=== PATIENT | female | born 1985 | race African-American/Black ===

== ENCOUNTER 2021-03-10 15:40 | Outpatient (CLI) | payer OTHER ==
[2021-03-10 16:55] LABS: Hemoglobin 12.6 g/dL (12.0-15.5); Mean Corpuscular HGB CONC 31.9 g/dL (32.0-36.0); Mean Corpuscular Hemoglobin 27.1 pg (27.0-33.0); Mean Corpuscular Volume 84.9 fl (81.6-98.3); Mean Platelet Volume 10.9 fl (7.4-10.4); Platelet Count 271 10x3/uL (150-450); RBC Distribution Width 13.4 % (11.5-14.5); Red Blood Cell (RBC) Count 4.65 10x6/uL (3.90-5.03); White Blood Cell (WBC) Count 4.5 10x3/uL (3.5-10.5)
[2021-03-10 17:07] LABS: BHCG - Serum Negative (NEGATIVE); Pregs Control Background? CLEAR/WHITE (CLR/WHITE); Pregs Control Bar Appear? YES (CONTROL BAR)
[2021-03-11 14:29] LABS: SARS-CoV-2 PCR by NAA Not Detected (NotDetected)
== END 2021-03-10 15:41 | disposition home or self-care (01) ==
LOC: CSHLAB 15:40
PROVIDERS: ATTEND Obstetrics & Gynecology
DX: Z01.812 Encounter for preprocedural laboratory examination (principal); Z20.822 Contact with and (suspected) exposure to COVID-19; N83.202 Unspecified ovarian cyst, left side
CPT/HCPCS: 84703; 85027; 86850; 86900; 86901; U0003; U0005

== ENCOUNTER 2021-03-15 10:30 | Day surgery (SDC) | payer OTHER ==
[2021-03-10 16:55] LABS: Hemoglobin 12.6 g/dL (12.0-15.5); Mean Corpuscular HGB CONC 31.9 g/dL (32.0-36.0); Mean Corpuscular Hemoglobin 27.1 pg (27.0-33.0); Mean Corpuscular Volume 84.9 fl (81.6-98.3); Mean Platelet Volume 10.9 fl (7.4-10.4); Platelet Count 271 10x3/uL (150-450); RBC Distribution Width 13.4 % (11.5-14.5); Red Blood Cell (RBC) Count 4.65 10x6/uL (3.90-5.03); White Blood Cell (WBC) Count 4.5 10x3/uL (3.5-10.5)
[2021-03-10 17:07] LABS: BHCG - Serum Negative (NEGATIVE); Pregs Control Background? CLEAR/WHITE (CLR/WHITE); Pregs Control Bar Appear? YES (CONTROL BAR)
[2021-03-11 14:29] LABS: SARS-CoV-2 PCR by NAA Not Detected (NotDetected)
[2021-03-13 15:41] VITALS: BMI 27.4
[2021-03-15] MEDS ORDERED: Lidocaine 1% MPF 2 ML VIAL ONE (12:14)
[2021-03-15] MEDS ORDERED: CeleCOXIB 100 MG CAP ONE (12:14)
[2021-03-15] MEDS ORDERED: Famotidine/PF 20 mg/2ml Vial ONE (12:14)
[2021-03-15] MEDS ORDERED: Gabapentin 300 MG CAP ONE (12:14)
[2021-03-15] MEDS ORDERED: EPINEPHrine 1 MG/ML AMP ONE (13:18)
[2021-03-15] MEDS ORDERED: Bupivacaine PF 0.5% 30 ML VIAL ONE (13:18)
[2021-03-15] MEDS ORDERED: PROPOFOL 20 ML ONE (13:19)
[2021-03-15] MEDS ORDERED: Fentanyl 100 MCG/2 ML VIAL ONE (13:19)
[2021-03-15] MEDS ORDERED: Lidocaine 1% PF 5 ML VIAL ONE (13:19)
[2021-03-15] MEDS ORDERED: Rocuronium Bromide 10 MG/ML (10ML VIAL) ONE (13:19)
[2021-03-15] MEDS ORDERED: Midazolam HCl 2 mg/2 ml Vial ONE (13:19)
[2021-03-15] MEDS ORDERED: Ketorolac Tromethamine 30 MG/ML VIAL ONE (13:20)
[2021-03-15] MEDS ORDERED: Ondansetron PF 4 MG/2 ML Vial ONE (13:20)
[2021-03-15] MEDS ORDERED: Dexamethasone 4 mg/ml Vial ONE (13:20)
[2021-03-15] MEDS ORDERED: Meperidine HCl/PF 25 MG/ML VIAL ONE (14:14)
[2021-03-15] MEDS ORDERED: Glycopyrrolate 0.2 MG/ML 5 ML SYRINGE ONE (14:24)
[2021-03-15] MEDS ORDERED: SUGAMMADEX SODIUM 200 MG/2 ML VIAL ONE (14:34)
== END 2021-03-15 16:20 | disposition home or self-care (01) ==
LOC: CSHSDC 10:30
PROVIDERS: ATTEND Obstetrics & Gynecology
PROC: 0UB44ZX Excision of Uterine Supporting Structure, Percutaneous Endoscopic Approach, Diagnostic (ICD-10-PCS; principal; 2021-03-15)
PROC: 0UB14ZZ Excision of Left Ovary, Percutaneous Endoscopic Approach (ICD-10-PCS; principal; 2021-03-15)
DX: N83.02 Follicular cyst of left ovary (principal); N83.291 Other ovarian cyst, right side; N80.3 Endometriosis of pelvic peritoneum; K66.0 Peritoneal adhesions (postprocedural) (postinfection); I10 Essential (primary) hypertension; M06.9 Rheumatoid arthritis, unspecified; Z79.899 Other long term (current) drug therapy
CPT/HCPCS: 84703; 85027; 86850; 86900; 86901; 88305; 88341; 88342; J0171; J0690; J1100; J1885; J2175; J2250; J2405; J2704; J3010; S0020; S0028; U0003; U0005

== ENCOUNTER 2022-12-10 14:11 | Emergency (ER) | payer OTHER ==
[~2022-12-10 14:11] MED LIST: Iopamidol 300 61% 100 ML VIAL FS ONE
[2022-12-10 14:44] LABS: Bilirubin Neg (Negative); Blood, Urine Negative (Negative); Clarity Slightly Cloudy (Clear); Glucose, Urine (Dipstick) Normal (Negative); Ketone, Urine Negative (Negative); Leukocyte 25 (Negative); Nitrite Positive (Negative); Protein, Urine (Dipstick) Negative (Neg-Trace)
[2022-12-10 14:47] LABS: Pregnancy Test - Urine (BHCG) Negative (Negative); Pregu Control Background? CLEAR/WHITE (CLR/WHITE); Pregu Control Bar Appear? YES (CONTROL BAR)
[2022-12-10 14:51] LABS: #Basophils 0.1 10x3/uL (0.0-0.2); #Monocytes 0.5 10x3/uL (0.0-1.1); #Neutrophils 7.1 10x3/uL (1.5-8.4); %Basophils 0.6 % (0.0-2.0); %Eosinophils 0.3 % (0.0-6.0); %Neutrophils 78.9 % (40.0-75.0); Hematocrit 39.3 % (34.9-44.5); Hemoglobin 12.5 g/dL (12.0-15.5); Mean Corpuscular HGB CONC 31.8 g/dL (32.0-36.0); Mean Corpuscular Hemoglobin 26.7 pg (27.0-33.0); Mean Corpuscular Volume 83.8 fl (81.6-98.3); Mean Platelet Volume 10.6 fl (7.4-10.4); Platelet Count 239 10x3/uL (150-450); RBC Distribution Width 13.8 % (11.5-14.5); Red Blood Cell (RBC) Count 4.69 10x6/uL (3.90-5.03)
[2022-12-10 15:06] LABS: ALT (SGPT) 12 U/L (8-55); AST (SGOT) 21 U/L (5-34); Albumin 4.2 g/dL (3.5-5.0); Alkaline Phosphatase 49 U/L (40-110); Anion Gap 14 mmol/L (10-20); BUN (Urea Nitrogen) 12 mg/dL (7.0-18.7); Bilirubin, Total 0.7 mg/dL (0.2-1.2); Calc. Creatinine Clearance 0 mL/min (70-130); Calcium 8.9 mg/dL (7.8-10.44); Carbon Dioxide 25 mmol/L (22-29); Chloride 103 mmol/L (98-107); Estimated GFR 100; Globulin 3.2 g/dL (2.4-3.5); Glucose 86 mg/dL (70-105); Potassium 3.7 mmol/L (3.5-5.1); Protein, Total 7.4 g/dL (6.0-8.3); Sodium 138 mmol/L (136-145)
[2022-12-10 15:12] LABS: Bacteria/HPF 4+ HPF (None Seen); CAUTI Indications for Culture Pelvic or flank pain; RBC/HPF 0-3 HPF (0-3)
[2022-12-10 15:14] LABS: Urine Culture Reflex No No
[2022-12-10] MEDS ORDERED: Ketorolac Tromethamine 30 MG/ML VIAL ONE (15:34)
[2022-12-10] MEDS ORDERED: Ondansetron PF 4 MG/2 ML Vial ONE (15:34)
[2022-12-10] MEDS ORDERED: cefTRIAXone (ROCEPHIN) 1 GM VIAL ONE (16:47)
[2022-12-10] MEDS ORDERED: HYDROcodone/Acetaminophen 5/325 mg Tablet ONE (17:39)
== END 2022-12-10 17:40 | disposition home or self-care (01) ==
LOC: CSHERS 14:11
DX: N39.0 Urinary tract infection, site not specified (principal); I10 Essential (primary) hypertension
CPT/HCPCS: 74177; 80053; 81001; 81025; 83690; 85025; 96374; 96375; J0696; J1885; J2405; Q9967